=== PATIENT | female | born 1965 | race Caucasian/White ===

== ENCOUNTER 2022-05-13 13:28 | Emergency (ER) | payer OTHER ==
[~2022-05-13] VITALS: Ht 152.4 cm; Wt 80.3 kg
[2022-05-13] MEDS ORDERED: TDAP DIPH,PERTUSS,TET VAC/PF 0.5 ML DISP.SYRIN IM ONE ×2 (13:30→13:41)
[2022-05-13] MEDS ORDERED: LIDOCAINE 1%-EPI 1:100,000 20 ML VIAL IJ ONE (13:30)
[2022-05-13] MEDS ORDERED: ACETAMINOPHEN 325 MG TABLET PO ONE (13:30)
[2022-05-13] MEDS ORDERED: ACETAMINOPHEN 325 MG TABLET ONE (13:40)
[2022-05-13] MEDS ORDERED: LIDOCAINE 1%-EPI 1:100,000 20 ML VIAL ONE (13:40)
--- NOTE | 2022-05-13 13:56 | NUR ---
PT IAS IN ROOM #2B. DR BHAGAT EVALUATED THE PT.
[2022-05-13] MEDS ORDERED: ONDANSETRON 4 MG/2 ML VIAL IV ONE (14:30)
[2022-05-13] MEDS ORDERED: ONDANSETRON 4 MG/2 ML VIAL ONE (14:31)
[2022-05-13 14:46] LABS: HEMATOCRIT 39.8 % (31.2-41.9); MEAN CORPUSCULAR HEMOGLOBIN 30.6 uug (24.7-32.8); MEAN CORPUSCULAR VOLUME 92.3 fL (75.5-95.3); PLATELET COUNT (AUTO) 204 K/uL (179-408)
[2022-05-13 14:57] LABS: BILIRUBIN,DIRECT 0.1 mg/dL (0.0-0.2); BILIRUBIN,TOTAL 0.5 mg/dL (0.2-1.0); CREATININE 0.9 mg/dL (0.6-1.3); POTASSIUM 3.2 mmol/L (3.5-5.1); TOTAL PROTEIN, SERUM 7.1 g/dL (6.4-8.2)
--- NOTE | 2022-05-13 15:05 | NUR ---
NECK COLLAR APPLIED ACCORDING TO DR OLAYINKA CONNORS.
[2022-05-13] MEDS ORDERED: IV NORMAL SALINE 250 ML IV ONE (15:41)
[2022-05-13] MEDS ORDERED: IOHEXOL 300MG/ML 100 ML INFUS..BTL ONE (15:41)
[2022-05-13] MEDS ORDERED: SWABABLE VALVE TRANSFER SET EA MC ONE (15:41)
[2022-05-13] MEDS ORDERED: HYDROCODONE/APAP 5-325MG TABLET PO ONE (18:00)
[2022-05-13] MEDS ORDERED: KETOROLAC TROMETHAMINE 15 MG INJ IVP ONE (18:00)
[2022-05-13] MEDS ORDERED: HYDROCODONE/APAP 5-325MG TABLET ONE (18:53)
[2022-05-13] MEDS ORDERED: KETOROLAC TROMETHAMINE 15 MG INJ ONE (18:53)
--- NOTE | 2022-05-13 19:00 | NUR ---
PT WAS D/C'd TO HOME. D/C INSTRUCTIONS GIVEN TO THE PT BY DR BHAGAT.
[2022-05-13 19:01] VITALS: BP 142/76
== END 2022-05-13 19:37 | disposition home or self-care (01) ==
LOC: EDBD 13:28 → ER 13:28
DX: S01.111A Laceration without foreign body of right eyelid and periocular area, initial encounter (principal); W10.9XXA Fall (on) (from) unspecified stairs and steps, initial encounter; Y92.89 Other specified places as the place of occurrence of the external cause; S01.81XA Laceration without foreign body of other part of head, initial encounter; E04.1 Nontoxic single thyroid nodule; E87.6 Hypokalemia; Z90.49 Acquired absence of other specified parts of digestive tract; N28.1 Cyst of kidney, acquired; I77.810 Thoracic aortic ectasia; M79.602 Pain in left arm; M79.601 Pain in right arm; R20.0 Anesthesia of skin; R73.9 Hyperglycemia, unspecified; S60.011A Contusion of right thumb without damage to nail, initial encounter
CPT/HCPCS: 99285; 70450; 71045; 96375; 80076; 80048; 85025; 85730; 86850; 86900; 86901; 36415; 73080 ×2; 73090 ×2; 73110 ×2; 73130 ×2; 70486; 71260; 72125; 74177; 90715; 90471; 12014; 29125; 73140; 96374; J1885; J3490; J2405; Q9967; A4663